=== PATIENT | female | born 1930 | race Two or more races ===

== ENCOUNTER 2019-11-02 06:06 | Day surgery (SDC) | payer OTHER ==
[~2019-11-02 06:06] MED LIST: AMLODIP PO; ATORVAST PO; ATORVASTATIN CA40 MG PO; METOPR PO; SYNTHROID50 MCG PO; [UNRECOGNIZED DRUG - CODE] PO
== END 2019-11-02 15:15 | disposition home or self-care (01) ==
LOC: CIR.AMB 06:06
PROVIDERS: ATTEND Obstetrics & Gynecology
DX: N84.0 Polyp of corpus uteri (principal)